=== PATIENT | female | born 1980 | race Caucasian/White ===

== ENCOUNTER 2020-05-29 22:28 | Emergency (ER) | payer BC, OTHER ==
[~2020-05-29] VITALS: Ht 160 cm; Wt 122.5 kg
[2020-05-29 22:36] VITALS: BP 127/95
[2020-05-29] MEDS ORDERED: PREDNISONE 20 M20 MG PO (23:18)
[2020-05-29] MEDS ORDERED: MOBIC15 MG PO (23:18)
== END 2020-05-29 23:33 | disposition home or self-care (01) ==
LOC: ER 22:28
DX: T78.40XA Allergy, unspecified, initial encounter (principal); L50.9 Urticaria, unspecified; Z88.1 Allergy status to other antibiotic agents; Y92.89 Other specified places as the place of occurrence of the external cause